=== PATIENT | female | born 1980 | race Caucasian/White ===

== ENCOUNTER → 2021-01-18 | Day surgery (SDC) | payer OTHER ==
[~2021-01-18] MED LIST: BENTYL10 MG PO; FISH OIL PO; LOPRESSOR25 MG PO; NAPROXEN500 MG PO; NORCO 5-325 TA1 EACH PO; ONDANSETRON ODT8 MG PO; PHENERGAN12.5 M1 PO; PRILOSEC20 MG PO; PROMETHEGA12.5 MG/SU PR; TRAMADOL HCL50 MG PO; VITAMIN D PO
[2021-01-18 08:08] LABS: HCG (URINE) SCREEN NEGATIVE (NEGATIVE)
[2021-01-18 08:30] LABS: HGB 13.8 g/dl (12.5-16.0); MCH 32.5 pg (25.0-31.0); MCHC 34.5 g/dL (32.0-36.0); MCV 94.1 fL (78.0-100.0); MPV 9.2 fL (6.0-9.5); RBC 4.25 M/uL (4.20-5.40); RDW 13.2 % (11.5-14.0); WBC 12.6 K/uL (4.0-10.5)
[2021-01-18 08:50] LABS: ALBUMIN 3.5 g/dL (3.4-5.0); BILIRUBIN - TOTAL 0.3 mg/dL (0.2-1.0); BUN/CREAT RATIO (CALC) 20.3 RATIO; CREATININE 0.69 mg/dL (0.51-0.95); GLOBULIN (CALCULATION) 3.9 g/dL; POTASSIUM 4.5 mmol/L (3.5-5.1); TOTAL PROTEIN 7.4 g/dL (6.4-8.2)
== END | disposition home or self-care (01) ==
LOC: FAS 07:47
PROVIDERS: Surgery
DX: K64.8 Other hemorrhoids (principal); K21.9 Gastro-esophageal reflux disease without esophagitis; K62.89 Other specified diseases of anus and rectum; F17.210 Nicotine dependence, cigarettes, uncomplicated; Z88.2 Allergy status to sulfonamides; Z82.49 Family history of ischemic heart disease and other diseases of the circulatory system; Z83.3 Family history of diabetes mellitus; Z80.1 Family history of malignant neoplasm of trachea, bronchus and lung; Z83.6 Family history of other diseases of the respiratory system
CPT/HCPCS: 36415; 80053; 84703; J1100; J2250; J2704; J7120

== ENCOUNTER → 2021-03-08 | Day surgery (SDC) | payer OTHER ==
[2021-03-08 08:14] LABS: HCG (URINE) SCREEN NEGATIVE (NEGATIVE)
[2021-03-08 08:33] LABS: HCT 38.7 % (37.0-47.0); HGB 13.4 g/dl (12.5-16.0); MCH 32.8 pg (25.0-31.0); MCHC 34.6 g/dL (32.0-36.0); MCV 94.9 fL (78.0-100.0); MPV 9.4 fL (6.0-9.5); RBC 4.08 M/uL (4.20-5.40); RDW 13.2 % (11.5-14.0); WBC 7.7 K/uL (4.0-10.5)
[2021-03-08 09:01] LABS: ALBUMIN 3.4 g/dL (3.4-5.0); BILIRUBIN - TOTAL 0.2 mg/dL (0.2-1.0); BUN/CREAT RATIO (CALC) 20.8 RATIO; CREATININE 0.72 mg/dL (0.51-0.95); GLOBULIN (CALCULATION) 3.4 g/dL; POTASSIUM 3.9 mmol/L (3.5-5.1); TOTAL PROTEIN 6.8 g/dL (6.4-8.2)
== END | disposition home or self-care (01) ==
LOC: FAS 07:46
PROVIDERS: Anesthesiology; Surgery
DX: K21.00 Gastro-esophageal reflux disease with esophagitis, without bleeding (principal); K29.50 Unspecified chronic gastritis without bleeding; K25.9 Gastric ulcer, unspecified as acute or chronic, without hemorrhage or perforation; F17.210 Nicotine dependence, cigarettes, uncomplicated; G43.909 Migraine, unspecified, not intractable, without status migrainosus; Z20.822 Contact with and (suspected) exposure to COVID-19; Z88.2 Allergy status to sulfonamides; Z90.49 Acquired absence of other specified parts of digestive tract; Z98.51 Tubal ligation status; Z82.49 Family history of ischemic heart disease and other diseases of the circulatory system; Z82.5 Family history of asthma and other chronic lower respiratory diseases; Z88.6 Allergy status to analgesic agent; Z91.018 Allergy to other foods
CPT/HCPCS: 36415; 80053; 84703; 93005; J2250; J2704; J7120